=== PATIENT | female | born 1955 | race Hispanic/Latino ===

== ENCOUNTER 2018-11-25 06:04 | Day surgery (SDC) | payer MEDICAID ==
[2018-11-23 10:07] LABS: APPEARANCE,URINE Clear (CLEAR); BILIRUBIN,URINE Negative (NEGATIVE); COLOR,URINE Yellow (YELLOW); GLUCOSE, URINE (UA) Negative (NEGATIVE); KETONES,URINE Negative (NEGATIVE); LEUKOCYTE ESTERASE ,URINE Small (NEGATIVE); NITRATE,URINE Negative (NEGATIVE); OCCULT BLOOD,URINE Negative (NEGATIVE); PROTEIN,URINE Negative (NEGATIVE); UROBILINOGEN,URINE 0.2 mg/dL (0.2-1.0)
[2018-11-23 10:07] LABS: EOSINOPHILS % (AUTO) 3.3 % (0.0-8.0); HEMATOCRIT 38.5 % (36-48); LYMPHOCYTES % (AUTO) 24.9 % (21.0-51.0); MEAN CORPUSCULAR HEMOGLOBIN 28.5 pg (27.0-33.0); MEAN CORPUSCULAR HGB CONC 33.4 g/dL (32.0-36.0); MEAN CORPUSCULAR VOLUME 85.1 fL (79-99); MONOCYTES % (AUTO) 6.2 % (3.0-13.0); NEUTROPHILS % (AUTO) 64.6 % (40.0-77.0); PLATELET COUNT (AUTO) 227 K/uL (130-400); RED BLOOD CELL COUNT(AUTO) 4.52 MIL/uL (4.00-5.50); RED CELL DISTRIBUTION WIDTH 13.3 % (11.0-15.5)
[2018-11-23 10:09] VITALS: BP 155/81
[2018-11-23 10:25] LABS: CREATININE 0.8 mg/dL (0.5-1.5); POTASSIUM 4.5 mmol/L (3.5-5.1)
[2018-11-23 10:30] LABS: INR 0.91 (0.85-1.15); PARTIAL THROMBOPLASTIN TIME 30.7 SEC (26.3-35.5); PROTHROMBIN TIME 9.6 SEC (9.6-11.6)
[2018-11-23 10:45] LABS: BACTERIA,URINE Moderate /HPF (None Seen); RBC,URINE 0-1 /HPF (0-1)
[~2018-11-25] VITALS: Ht 154.9 cm; Wt 106.1 kg
[2018-11-25] VITALS (17 sets, daily range): BP systolic 126–160; BP diastolic 61–88
[~2018-11-25 06:04] MED LIST: ACET12.52 PO; CHOL200074 PO; CLOP75TA32 PO; CYCL30DR OP; EZET10TA13 PO; GABA-529 PO; ISOS30TA6 PO; LOSA25TA41 PO; METF-445 PO; NAPR-1192 PO; NITR0.4T50 SL; ONDA4TAB10 PO; SIMV20TA6 PO; VICTOZA PEN SQ; [UNRECOGNIZED DRUG - OTHER]
--- NOTE | 2018-11-25 06:12 | NUR ---
PATIENT ARRIVED PATIENT ARRIVED TO DAY PATIENT ACCOMPANIED BY DAUGHTER, KOREY HDZ. PATIENT AAOX3, RESPIRATIONS UNLABORED, PATIENT DENIES PAIN AT THIS TIME. VITAL SIGNS STABLE. PROCEDURE VERIFIED AND CONFIRMED WITH PATIENT. PROCEDURE EXPLAINED TO PATIENT AND PATIENT VERBALIZED UNDERSTANDING.
[2018-11-25] MEDS ORDERED: SODIUM CHLORIDE 0.9% 1000ML 1,000 ML IV ONE (07:54)
[2018-11-25] MEDS ORDERED: IOHEXOL-350 50ML VIAL IV ONE (08:24)
[2018-11-25] MEDS ORDERED: NITROGLYCERIN 5 MG/ML 10 ML VIAL IV ONE (08:24)
[2018-11-25] MEDS ORDERED: IOHEXOL 350 MG/ML 100ML INFUS..BTL IV ONE (08:24)
[2018-11-25] MEDS ORDERED: LIDOCAINE HCL 2% 20ML ONE (08:26)
--- NOTE | 2018-11-25 08:30 | NUR ---
PATIENT TRANSFERRED PATIENT TAKEN TO WATER PROOFER VIA BED BY TOÑO MEJIA. PATIENT'S FAMILY INSTRUCTED TO WAIT IN ROOM FOR PATIENT SO THAT THEY MAY SPEAK WITH `DOCTOR AFTER PROCEDURE IS COMPLETE.
[2018-11-25] MEDS ORDERED: FENTANYL CITRATE PF 50 MCG/1 ML 2ML VIAL ONE (08:53)
[2018-11-25] MEDS ORDERED: MIDAZOLAM HCL 1 MG/ML 2ML VIAL ONE (08:53)
[2018-11-25] MEDS ORDERED: LABETALOL HCL 5 MG/ML 20ML VIAL IV ONE (09:06)
[2018-11-25] MEDS ORDERED: SODIUM CHLORIDE 0.9% 1000ML 1,000 ML IV SCH (09:19)
[2018-11-25] MEDS ORDERED: GLUCAGON 1MG KIT 1 MG ML IM PRN (09:30)
[2018-11-25] MEDS ORDERED: HYDRALAZINE HCL 20 MG/ML VIAL IV PRN (09:30)
[2018-11-25] MEDS ORDERED: DEXTROSE 50%-WATER 50 ML DISP.SYRIN IV PRN (09:30)
--- NOTE | 2018-11-25 09:30 | NUR ---
PATIENT RETURNED PATIENT BROUGHT BACK FROM BEARING INSPECTOR BY GUILLERMO ANDREWS RN. PATIENT AAOX3, RESPIRATIONS UNLABORED, VITAL SIGNS STABLE, PATIENT DENIES ANY PAIN AT THIS TIME. FAMILY MEMBERS AT BEDSIDE. RIGHT FEMORAL SITE WITH 6FR SHEATH IN PLACE TO RIGHT GROIN, SIGHT SOFT, NO OOZING.
[2018-11-25] MEDS ORDERED: ATROPINE SULFATE 0.1 MG/ML 10 ML SYG IVP ONE (09:50)
[2018-11-25] MEDS ORDERED: INSULIN HUMULIN R 100 UNIT/ML 3ML SQ SCH (11:30)
[2018-11-25] MEDS ORDERED: INSULIN HUMULIN R 100 UNIT/ML 3ML ONE ×2 (11:36→13:31)
--- NOTE | 2018-11-25 14:40 | NUR ---
DISCHARGED DISCHARGE INSTRUCTIONS PROVIDED TO PATIENT AND PATIENT'S DAUGHTER (KOREY HDZ). FOLLOW UP APPOINTMENTS PROVIDED. FEMORAL SITE CARE EXPLAINED, ALL QUESTIONS/CONCERNS ADDRESSED. PATIENT AND DAUGHTER VERBALIZED UNDERSTANDING. PATIENT TAKEN TO PRIVATE VEHICLE VIA WHEELCHAIR AND ACCOMPANIED BY DAUGHTERS.
== END 2018-11-25 14:40 | disposition home or self-care (01) ==
LOC: DAH 06:04
PROVIDERS: ATTEND Internal Medicine Cardiovascular Disease
DX: I25.10 Atherosclerotic heart disease of native coronary artery without angina pectoris (principal); I35.0 Nonrheumatic aortic (valve) stenosis; E11.9 Type 2 diabetes mellitus without complications; E66.9 Obesity, unspecified; E78.5 Hyperlipidemia, unspecified; I10 Essential (primary) hypertension; Z88.8 Allergy status to other drugs, medicaments and biological substances; Z79.899 Other long term (current) drug therapy; Z79.84 Long term (current) use of oral hypoglycemic drugs; Z68.41 Body mass index [BMI] 40.0-44.9, adult; Z90.49 Acquired absence of other specified parts of digestive tract; Z90.710 Acquired absence of both cervix and uterus; Z98.890 Other specified postprocedural states; Z83.3 Family history of diabetes mellitus; Z82.3 Family history of stroke
CPT/HCPCS: 36415; 71045; 80048; 81001; 82948 ×3; 85025; 85610; 85730; 93005; 93458; A4606; C1894 ×2; J1815 ×2; J2250; J3010; J3490 ×3; J7030; Q9965; Q9967 ×2; 99156; 99157; J0461

== ENCOUNTER 2019-05-23 06:07 | Day surgery (SDC) | payer MEDICARE ==
[~2019-05-23] VITALS: Ht 154.9 cm; Wt 107.0 kg
[~2019-05-23 06:07] MED LIST changes: -ACET12.52 PO; +ASPI-555 PO; -CHOL200074 PO; -CLOP75TA32 PO; -CYCL30DR OP; -ISOS30TA6 PO; +LUBI24CA2 PO; -NAPR-1192 PO; -ONDA4TAB10 PO; +PANT40TA PO; +SIMV-43 PO; -SIMV20TA6 PO; +SODIUM CHLORIDE 0.9% 1000ML 1,000 ML IV ONE; -[UNRECOGNIZED DRUG - OTHER]
[2019-05-23 07:27] VITALS: BP 159/79
[2019-05-23] MEDS ORDERED: PROPOFOL 10 MG/ML 20ML VIAL IV ONE (07:36)
[2019-05-23 07:54] VITALS: BP 115/75
[2019-05-23] MEDS ORDERED: VITAMIN PO (07:54)
[2019-05-23] MEDS ORDERED: LUBI24CA2 PO (07:54)
[2019-05-23] MEDS ORDERED: LINA145C PO (07:54)
[2019-05-23] MEDS ORDERED: CYAN-35 PO (07:54)
[2019-05-23] MEDS ORDERED: OMEP20CA12 PO (07:54)
[2019-05-23] MEDS ORDERED: HYDR-4153 PO (07:54)
[2019-05-23] MEDS ORDERED: FLUTIC (07:54)
[2019-05-23] MEDS ORDERED: DONE5TAB26 PO (07:54)
[2019-05-23 07:59] VITALS: BP 135/80
[2019-05-23 08:04] VITALS: BP 141/84
== END 2019-05-23 08:23 | disposition home or self-care (01) ==
LOC: DAH 06:07
PROVIDERS: ATTEND Internal Medicine Gastroenterology
DX: K59.04 Chronic idiopathic constipation (principal); K21.0 Gastro-esophageal reflux disease with esophagitis; K29.70 Gastritis, unspecified, without bleeding; E11.9 Type 2 diabetes mellitus without complications; R14.0 Abdominal distension (gaseous); E78.5 Hyperlipidemia, unspecified; I10 Essential (primary) hypertension; M19.90 Unspecified osteoarthritis, unspecified site; I25.10 Atherosclerotic heart disease of native coronary artery without angina pectoris; I25.2 Old myocardial infarction; Z90.49 Acquired absence of other specified parts of digestive tract; Z90.710 Acquired absence of both cervix and uterus; Z98.890 Other specified postprocedural states
CPT/HCPCS: 43239; 82948 ×2; A4215; A4221; A4222; A4223; A4606; A4620; A4663; J2704; J7030

== ENCOUNTER → 2021-06-10 | Outpatient (CLI) | payer MEDICARE ==
[~2021-06-10] VITALS: Ht 154.9 cm; Wt 106.1 kg
[~2021-06-10] MED LIST changes: -ASPI-555 PO; +ASPI-556 PO; +CYAN-35 PO; +DONE-51 PO; +FLUTIC; +HYDR-4153 PO; +LINA145C PO; -PANT40TA PO; +REGADENOSON 0.4 MG/5 ML PF SYG IVP SCH; -SODIUM CHLORIDE 0.9% 1000ML 1,000 ML IV ONE; +VITAMIN PO
== END | disposition home or self-care (01) ==
LOC: SHCH 08:10
PROVIDERS: ATTEND Internal Medicine Cardiovascular Disease
DX: I25.118 Atherosclerotic heart disease of native coronary artery with other forms of angina pectoris (principal); R07.89 Other chest pain; R06.02 Shortness of breath; R94.39 Abnormal result of other cardiovascular function study
CPT/HCPCS: 78452; 93017; A9500 ×2; J2785; 96374

== ENCOUNTER → 2024-02-08 | Outpatient (CLI) | payer MEDICARE ==
[~2024-02-08] MED LIST changes: -EZET10TA13 PO; +EZET10TA81 PO; -HYDR-4153 PO; +HYDR25TA67 PO; -REGADENOSON 0.4 MG/5 ML PF SYG IVP SCH
== END | disposition home or self-care (01) ==
LOC: RAH 12:12
PROVIDERS: ATTEND Student in an Organized Health Care Education/Training Program
DX: K43.9 Ventral hernia without obstruction or gangrene (principal); R10.9 Unspecified abdominal pain; Z90.49 Acquired absence of other specified parts of digestive tract
CPT/HCPCS: 74176